=== PATIENT | male | born 1995 | race Caucasian/White ===

== ENCOUNTER 2020-10-07 18:53 | Emergency (ER) | payer SELFPAY ==
--- NOTE | 2020-10-07 19:40 | ER ---
Nurse's Notes [facility] Name: Damaso Richards Age: 25 yrs Sex: Male : 1995 Arrival Date: 10/07/2020 Time: 19:01 Bed 19 Private MD: Diagnosis: Staphylococcal infection, unspecified site Presentation: 10/07 19:03 Chief complaint: Patient states: left thumb abscess started last week and now is sv spreading to his left 2nd digit. c/o pain, redness. Coronavirus screen: Client denies travel out of the [place] in the last 14 days. At this time, the client does not indicate any symptoms associated with coronavirus-19. Ebola Screen: No symptoms or risks identified at this time. Risk Assessment: Do you want to hurt yourself or someone else? Patient reports no desire to harm self or others. Onset of symptoms was September 2020. 19:03 Method Of Arrival: Ambulatory sv 19:03 Acuity: FABIANO 3 sv 19:04 Initial Sepsis Screen: Does the patient meet any 2 criteria? No. Patient's initial sv sepsis screen is negative. Does the patient have a suspected source of infection? No. Patient's initial sepsis screen is negative. Triage Assessment: 19:04 General: Appears in no apparent distress. uncomfortable, Behavior is calm, cooperative, sv appropriate for age. Pain: Complains of pain in left thumb and left index finger. Neuro: Level of Consciousness is awake, alert, obeys commands, Gait is steady. Respiratory: Respiratory effort is even, unlabored. Historical: - Allergies: 19:04 No Known Allergies; sv - PMHx: 19:04 None; sv - PSHx: 19:04 None; sv - Immunization history:: Adult Immunizations up to date. - Social history:: Smoking status: Reported history of juuling and/or vaping. Screenin:11 Abuse screen: Denies threats or abuse. Denies injuries from another. Nutritional kg screening: No deficits noted. Tuberculosis screening: No symptoms or risk factors identified. Fall Risk None identified. No fall in past 12 months (0 pts). No secondary diagnosis (0 pts). No IV (0 pts). Ambulatory Aid- None/Bed Rest/Nurse Assist (0 pts). Gait- Normal/Bed Rest/Wheelchair (0 pts) Mental Status- Oriented to own ability (0 pts). Total Hand Fall Scale indicates No Risk (0-24 pts). Assessment: 20:07 General: Appears in no apparent distress. Behavior is calm, cooperative, appropriate kg for age, quiet. 20:08 Pain: Complains of pain in dorsal aspect of proximal phalanx of left thumb, dorsal kg aspect of distal phalanx of left index finger, dorsal aspect of middle phalanx of left index finger, dorsal aspect of proximal phalanx of left index finger, palmar aspect of distal phalanx of left index finger, palmar aspect of middle phalanx of left index finger, palmar aspect of proximal phalanx of left index finger, palmar aspect of distal phalanx of left thumb, palmar aspect of proximal phalanx of left thumb and left thumbnail Pain radiates to left hand Pain currently is 2 out of 10 on a pain scale. at worst was 5 out of 10 on a pain scale. level that patient reports is acceptable is 2 out of 10 on a pain scale. Quality of pain is described as itching. Neuro: No deficits noted. Level of Consciousness is awake, alert, Oriented to person, place, time, situation. Cardiovascular: No deficits noted. Respiratory: No deficits noted. GI: No deficits noted. : No deficits noted. EENT: No deficits noted. Derm: No deficits noted. Derm: Parent/caregiver reports the patient having itching, pain. Musculoskeletal: No deficits noted. Injury Description: Abrasion sustained to dorsal aspect of distal phalanx of left thumb, dorsal aspect of proximal phalanx of left thumb, palmar aspect of distal phalanx of left thumb and palmar aspect of proximal phalanx of left thumb is redness. Vital Signs: 19:04 BP 128 / 76; Pulse 87; Resp 16; Temp 98.8(O); Pulse Ox 99% ; Weight 58.06 kg; Height 5 sv ft. 8 in. (172.72 cm); Pain 2/10; 20:07 BP 110 / 74; Pulse 75; Resp 20; Pulse Ox 100% on R/A; kg 19:04 Body Mass Index 19.46 (58.06 kg, 172.72 cm) sv ED Course: 19:01 Patient arrived in ED. mr 19:03 Triage completed. sv 19:04 Arm band placed on. sv 19:06 Page, Gavin, PA is PHCP. cp 19:06 Michael Felipe MD is Attending Physician. cp 19:30 Elsie Majano is Primary Nurse. kg 20:11 No provider procedures requiring assistance completed. Patient did not have IV access kg during this emergency room visit. 20:12 Patient has correct armband on for positive identification. Call light in reach. Side kg rails up X 1. Administered Medications: No medications were administered Outcome: 19:40 Discharge ordered by MD. cp 20:12 Discharged to home ambulatory. kg 20:12 Condition: good 20:12 Discharge instructions given to patient, Instructed on discharge instructions, follow up and referral plans. Demonstrated understanding of instructions, follow-up care, medications, Prescriptions given X 2. 20:13 Patient left the ED. kg Signatures: Kirsten Soto RN RN Marguerite Bee mr Gavin Paez PA PA cp Elsie Majano kg Corrections: (The following items were deleted from the chart) 20:11 20:07 Pain: Complains of pain in right hand kg kg
--- NOTE | 2020-10-07 19:41 | EDPHYS ---
Physician Documentation [facility] Name: Damaso Richards Age: 25 yrs Sex: Male : 1995 Arrival Date: 10/07/2020 Time: 19:01 Bed 19 Private MD: ED Physician Michael Felipe HPI: 10/07 19:20 This 25 yrs old Male presents to ER via Ambulatory with complaints of Abscess.cp 19:20 infection. Description: erythematous, swollen. cp 19:20 Onset: The symptoms/episode began/occurred last week. cp 19:20 Possible cause(s): unknown. Associated signs and symptoms: Pertinent negatives: fever. cp Historical: - Allergies: 19:04 No Known Allergies; sv - PMHx: 19:04 None; sv - PSHx: 19:04 None; sv - Immunization history:: Adult Immunizations up to date. - Social history:: Smoking status: Reported history of juuling and/or vaping. ROS: 19:25 Constitutional: Negative for body aches, chills, fever. cp 19:25 Skin: Positive for erythema, swelling, of the left hand. cp 19:25 All other systems are negative. Exam: 19:30 Constitutional: The patient appears in no acute distress, alert, awake, non-toxic, well cp developed, well nourished. 19:30 Skin: abscess, not appreciated, cellulitis, that is mild, irregular, several areas of cp mild erythema noted to dorsum left hand and digits. Vital Signs: 19:04 BP 128 / 76; Pulse 87; Resp 16; Temp 98.8(O); Pulse Ox 99% ; Weight 58.06 kg; Height 5 sv ft. 8 in. (172.72 cm); Pain 2/10; 20:07 BP 110 / 74; Pulse 75; Resp 20; Pulse Ox 100% on R/A; kg 19:04 Body Mass Index 19.46 (58.06 kg, 172.72 cm) sv MDM: 19:17 Patient medically screened. cp 19:40 Data reviewed: vital signs, nurses notes. cp 19:40 Differential diagnosis: abscess, allergic reaction, cellulitis, dermatitis. Counseling: cp I had a detailed discussion with the patient and/or guardian regarding: the historical points, exam findings, and any diagnostic results supporting the discharge/admit diagnosis, to return to the emergency department if symptoms worsen or persist or if there are any questions or concerns that arise at home. Administered Medications: No medications were administered Disposition: 19:45 Chart complete. cp Disposition: 10/07/20 19:40 Discharged to Home. Impression: Staphylococcal infection, unspecified site. - Condition is Stable. - Discharge Instructions: Staphylococcal Infection. - Prescriptions for Bactroban 2 % Topical Ointment - Apply to affected area 1 application by TOPICAL route every 12 hours; 30 gram. Bactrim DS 800- 160 mg Oral Tablet - take 1 tablet by ORAL route every 12 hours for 10 days; 20 tablet. - Medication Reconciliation Form, Thank You Letter, Antibiotic Education, Prescription Opioid Use, Work release form form. - Follow up: Private Physician; When: 2 - 3 days; Reason: Worsening of condition. - Problem is new. - Symptoms are unchanged. Signatures: Kirsten Soto RN RN Gavin Zendejas PA PA cp Elsie Majano kg Corrections: (The following items were deleted from the chart) 20:13 19:40 10/07/2020 19:40 Discharged to Home. Impression: Staphylococcal infection, kg unspecified site. Condition is Stable. Forms are Medication Reconciliation Form, Thank You Letter, Antibiotic Education, Prescription Opioid Use. Follow up: Private Physician; When: 2 - 3 days; Reason: Worsening of condition. Problem is new. Symptoms are unchanged. cp
[2020-10-07 20:17] VITALS: TEMP 98.8
[2020-10-07 20:19] VITALS: BP 110/74; O2SAT 100
== END 2020-10-07 20:13 | disposition home or self-care (01) ==
LOC: ER 18:53
DX: L03.114 Cellulitis of left upper limb (principal); B95.8 Unspecified staphylococcus as the cause of diseases classified elsewhere; F17.290 Nicotine dependence, other tobacco product, uncomplicated
CPT/HCPCS: 99282

== ENCOUNTER 2020-11-28 22:25 | Emergency (ER) | payer SELFPAY ==
--- NOTE | 2020-11-28 23:34 | ER ---
Nurse's Notes [facility] Name: Damaso Richards Age: 25 yrs Sex: Male : 1995 Arrival Date: 11/28/2020 Time: 22:27 Bed Waiting Private MD: Diagnosis: ED Course: 11/28 22:27 Patient arrived in ED. 23:33 Patient's name was called from ER lobby. No response. Unable to locate patient. Will bb disposition as left without being seen by a provider. Administered Medications: No medications were administered Outcome: 23:33 Patient left the ED. bb Signatures: Milla Arrington RN RN bb Maria DeJ esus Cade
== END 2020-11-28 23:33 | disposition left against medical advice (07) ==
LOC: ER 22:25
DX: Z02.9 Encounter for administrative examinations, unspecified (principal)

== ENCOUNTER 2022-12-23 17:27 | Emergency (ER) | payer OTHER, SELFPAY ==
[2022-12-23] MEDS ORDERED: IBUPROFEN 200 MG TAB PO ONE (18:29)
[2022-12-23] MEDS ORDERED: ACETAMINOPHEN 325 MG TABLET ONE (18:29)
--- NOTE | 2022-12-23 19:24 | RAD REPORT ---
EXAM DESCRIPTION: RAD - Humerus Left - 12/23/2022 7:02 pm CLINICAL HISTORY: Left arm pain FINDINGS: No fracture is seen
--- NOTE | 2022-12-23 19:40 | EDPHYS ---
Physician Documentation [facility] Name: Damaso Richards Age: 27 yrs Sex: Male : 1995 Arrival Date: 12/23/2022 Time: 17:27 Bed 13 Private MD: ED Physician Christian Jackson HPI: 12/23 18:10 This 27 yrs old Male presents to ER via Ambulatory with complaints of Left Upper Arm cp Pain. 18:10 The patient or guardian complains of pain, that is acute. The complaints affect the cp left bicep. 18:10 Patient is a 27-year-old male who presents to the emergency department with complaints cp of left upper arm pain that started 3 days ago. Patient states he worked out pretty strenuously performing arm exercises 4 days ago and does not recall any specific injury states the next day after working out started having pain that left upper arm that has worsened over the past 3 days. Patient reports she has full range of motion of his left arm but is holding it with the elbow flexed to 90 for comfort. Historical: - Allergies: 17:51 No Known Allergies; ss - Home Meds: 17:51 None [Active]; ss - PMHx: 17:51 None; ss - PSHx: 17:51 None; ss - Immunization history:: Client reports having NOT received the Covid vaccine. - Social history:: Smoking status: Reported history of juuling and/or vaping. ROS: 18:15 Constitutional: Negative for body aches, chills, fever, poor PO intake. cp 18:15 Eyes: Negative for injury, pain, redness, and discharge. cp 18:15 ENT: Negative for drainage from ear(s), ear pain, sore throat, difficulty swallowing, difficulty handling secretions. 18:15 Cardiovascular: Negative for chest pain. 18:15 Respiratory: Negative for cough, shortness of breath, wheezing. 18:15 Abdomen/GI: Negative for abdominal pain, nausea, vomiting, and diarrhea. 18:15 MS/extremity: Positive for pain, tenderness, of the left bicep and left upper arm, Negative for decreased range of motion, deformity, paresthesias. 18:15 Neck: Negative for pain with movement, pain at rest, stiffness. cp 18:15 Back: Negative for pain at rest, pain with movement. 18:15 Skin: Negative for cellulitis, rash. 18:15 All other systems are negative. Exam: 18:20 Constitutional: The patient appears in no acute distress, alert, awake, non-toxic, well cp developed, well nourished, uncomfortable. 18:20 Head/Face: Normocephalic, atraumatic. cp 18:20 Eyes: Periorbital structures: appear normal, Conjunctiva: normal, no exudate, no injection, Sclera: no appreciated abnormality, Lids and lashes: appear normal, bilaterally. 18:20 ENT: External ear(s): are unremarkable, Nose: is normal, Mouth: Lips: moist, Oral mucosa: pink and intact, moist, Posterior pharynx: is normal, airway is patent, no erythema, no exudate. 18:20 Neck: ROM/movement: is normal, is supple, without pain, no range of motions limitations. 18:20 Chest/axilla: Inspection: normal. 18:20 Cardiovascular: Rate: normal, Rhythm: regular, Pulses: Pulses are 2+ in left radial artery. 18:20 Respiratory: the patient does not display signs of respiratory distress, Respirations: normal, no use of accessory muscles, no retractions, labored breathing, is not present, Breath sounds: are clear throughout, no decreased breath sounds, no stridor, no wheezing. 18:20 Abdomen/GI: Exam negative for discomfort, distension, guarding, Inspection: abdomen appears normal. 18:20 Back: pain, is absent, ROM is normal. 18:20 Musculoskeletal/extremity: Extremities: grossly normal except: noted in the left bicep: pain, swelling, tenderness, There is no evidence of deformity, no pain to palpation elicited along the biceps tendon, full active range of motion at the left shoulder and left elbow, no significant ecchymosis and no obvious deformities of the biceps muscle itself, the left hand and left arm Sensation intact. Vital Signs: 17:50 BP 110 / 69; Pulse 75; Resp 16; Temp 98.8; Pulse Ox 96% ; Weight 55.34 kg; Height 5 ft. eh3 8 in. ; Pain 3/10; 19:06 BP 114 / 80; Pulse 61; Resp 16; Pulse Ox 97% ; eh3 19:58 BP 107 / 71; Pulse 54; Resp 16; Pulse Ox 97% ; vc1 17:50 Body Mass Index 18.55 (55.34 kg, 172.72 cm) eh3 17:50 Pain Scale: Adult eh3 MDM: 17:52 Patient medically screened. cp 19:40 Data reviewed: vital signs, nurses notes, radiologic studies, plain films. cp 19:40 Differential diagnosis: tendon rupture, muscle strain, muscle rupture. I considered the cp following discharge prescriptions or medication management in the emergency department Medications were administered in the Emergency Department. See MAR. Independent interpretation of the following test(s) in the Emergency Department X-Ray: My interpretation is images of left humerus negative for fracture. Counseling: I had a detailed discussion with the patient and/or guardian regarding: the historical points, exam findings, and any diagnostic results supporting the discharge/admit diagnosis, radiology results, the need for outpatient follow up, a orthopedic surgeon, to return to the emergency department if symptoms worsen or persist or if there are any questions or concerns that arise at home. Response to treatment: the patient's symptoms have mildly improved after treatment, and as a result, I will discharge patient. 12/23 18:09 Order name: XRAY Humerus LEFT; Complete Time: 19:33 cp 12/23 19:33 Interpretation: Report reviewed. cp 12/23 18:10 Order name: Ice pack; Complete Time: 18:34 cp 12/23 19:33 Order name: Sling; Complete Time: 19:58 cp Administered Medications: 18:20 Drug: Ibuprofen PO 600 mg Route: PO; 3 19:58 Follow up: Response: No adverse reaction; Marked relief of symptoms; Pain is decreased vc1 18:20 Drug: Acetaminophen PO 650 mg Route: PO; 3 19:58 Follow up: Response: No adverse reaction; Marked relief of symptoms; Pain is decreased vc1 Disposition: 19:57 Co-signature as Attending Physician, Christian MA was immediately available on-site ms3 in the Emergency Department for consultation in the care of the patient. Disposition Summary: 12/23/22 19:40 Discharge Ordered Location: Home cp Problem: new cp Symptoms: have improved cp Condition: Stable cp Diagnosis - Other injury of muscle, fascia and tendon of other parts of biceps, left arm, cp initial encounter Followup: cp - With: Soy Jain MD - When: 2 - 3 days - Reason: Recheck today's complaints Discharge Instructions: - Discharge Summary Sheet cp - Muscle Strain cp - Form - Excuse from Work, School, or Physical Activity cp Forms: - Medication Reconciliation Form cp - Thank You Letter cp - Antibiotic Education cp - Prescription Opioid Use cp - Patient Portal Instructions cp Prescriptions: - Ibuprofen 600 mg Oral Tablet - take 1 tablet by ORAL route every 8 hours As needed take with food; 30 tablet; cp Refills: 0, Product Selection Permitted - Cyclobenzaprine 10 mg Oral Tablet - take 1 tablet by ORAL route every 8 hours As needed; 30 tablet; Refills: 0, cp Product Selection Permitted Signatures: Dispatcher [employer] EDMS Anahi Mahajan RN RN ss Gavin Paez, TARAS PA cp Christian Jackson DO DO ms3 Rukhsana Salvador RN RN eh3 My Hester RN vc1
--- NOTE | 2022-12-23 19:40 | ER ---
Nurse's Notes [facility] Name: Damaso Richards Age: 27 yrs Sex: Male : 1995 Arrival Date: 12/23/2022 Time: 17:27 Bed 13 Private MD: Diagnosis: Other injury of muscle, fascia and tendon of other parts of biceps, left arm, initial encounter Presentation: 12/23 17:50 Chief complaint: Patient states: L elbow/ bicep pain that began 3 days ago after ss working out. Coronavirus screen: Client denies travel out of the [place] in the last 14 days. Ebola Screen: Patient denies exposure to infectious person. Patient denies travel to an Ebola-affected area in the 21 days before illness onset. Initial Sepsis Screen: Does the patient meet any 2 criteria? No. Patient's initial sepsis screen is negative. Does the patient have a suspected source of infection? No. Patient's initial sepsis screen is negative. Risk Assessment: Do you want to hurt yourself or someone else? Patient reports no desire to harm self or others. Onset of symptoms was December 20, 2022. 17:50 Method Of Arrival: Ambulatory ss 17:50 Acuity: FABIANO 4 ss Historical: - Allergies: 17:51 No Known Allergies; ss - Home Meds: 17:51 None [Active]; ss - PMHx: 17:51 None; ss - PSHx: 17:51 None; ss - Immunization history:: Client reports having NOT received the Covid vaccine. - Social history:: Smoking status: Reported history of juuling and/or vaping. Screenin:53 [facility] ED Fall Risk Assessment (Adult) Score/Fall Risk Level 0 - 2 = Low Risk. Abuse eh3 screen: Denies threats or abuse. Denies injuries from another. Nutritional screening: No deficits noted. Tuberculosis screening: No symptoms or risk factors identified. Assessment: 17:53 General: Appears in no apparent distress. uncomfortable, Behavior is calm, cooperative, eh3 appropriate for age. Pain: Complains of pain in left antecubital area Pain radiates to anterior aspect of left shoulder. Pain: Noted to be guarding, resistant to movement. Neuro: Level of Consciousness is awake, alert, obeys commands, Oriented to person, place, time, situation. Cardiovascular: Capillary refill < 3 seconds Patient's skin is warm and dry. Respiratory: Airway is patent Respiratory effort is even, unlabored, Respiratory pattern is regular, symmetrical. GI: Abdomen is round non-distended. Derm: Skin is pink, warm \T\ dry. Musculoskeletal: Circulation, motion, and sensation intact. 19:06 Reassessment: No changes from previously documented assessment. Patient and/or family eh3 updated on plan of care and expected duration. Pain level reassessed. 19:59 Reassessment: Patient and/or family updated on plan of care and expected duration. Pain vc1 level reassessed. Patient is alert, oriented x 3, equal unlabored respirations, skin warm/dry/pink. Patient states feeling better. Patient states symptoms have improved. Vital Signs: 17:50 BP 110 / 69; Pulse 75; Resp 16; Temp 98.8; Pulse Ox 96% ; Weight 55.34 kg; Height 5 ft. eh3 8 in. ; Pain 3/10; 19:06 BP 114 / 80; Pulse 61; Resp 16; Pulse Ox 97% ; eh3 19:58 BP 107 / 71; Pulse 54; Resp 16; Pulse Ox 97% ; vc1 17:50 Body Mass Index 18.55 (55.34 kg, 172.72 cm) eh3 17:50 Pain Scale: Adult eh3 ED Course: 17:29 Patient arrived in ED. rg4 17:47 Rukhsana Salvador, RN is Primary Nurse. eh3 17:51 Triage completed. ss 17:51 Gavin Paez PA is PHCP. cp 17:51 Christian Jackson DO is Attending Physician. cp 17:51 Arm band placed on left wrist. ss 17:53 Patient has correct armband on for positive identification. Bed in low position. Call eh3 light in reach. Side rails up X2. Provided Education on: Use of call victor. Pulse ox on. NIBP on. 19:00 Report received from JUMA Milian. vc1 19:03 XRAY Humerus LEFT In Process Unspecified. EDMS 19:39 Soy Jain MD is Referral Physician. cp 19:59 No provider procedures requiring assistance completed. Patient did not have IV access vc1 during this emergency room visit. 19:59 Sling applied to left arm. vc1 Administered Medications: 18:20 Drug: Ibuprofen PO 600 mg Route: PO; eh3 19:58 Follow up: Response: No adverse reaction; Marked relief of symptoms; Pain is decreased vc1 18:20 Drug: Acetaminophen PO 650 mg Route: PO; 3 19:58 Follow up: Response: No adverse reaction; Marked relief of symptoms; Pain is decreased vc1 Medication: 20:00 VIS not applicable for this client. vc1 Outcome: 19:40 Discharge ordered by . cp 19:59 Discharged to home ambulatory. vc1 19:59 Condition: good 19:59 Discharge instructions given to patient, Instructed on discharge instructions, follow up and referral plans. medication usage, Demonstrated understanding of instructions, follow-up care, medications, sling use 20:00 Patient left the ED. vc1 Signatures: Dispatcher [employer] EDMS Anahi Mahajan RN RN Gavin Paez PA PA cp Garcia, Rubi rg4 My Hester RN RN 1 Rukhsana Salvador RN RN eh3 Corrections: (The following items were deleted from the chart) 17:53 17:50 Resp 16bpm; 55.34 kg; Height 5 ft. 8 in.; BMI: 18.5; Pain 310, Adult; [facility]
[2022-12-23 20:04] VITALS: TEMP 98.8
[2022-12-23 20:06] VITALS: O2SAT 97
[2022-12-23 20:08] VITALS: BP 107/71
== END 2022-12-23 20:00 | disposition home or self-care (01) ==
LOC: ER 17:27
DX: S46.292A Other injury of muscle, fascia and tendon of other parts of biceps, left arm, initial encounter (principal)
CPT/HCPCS: 99284